=== PATIENT | female | born 1950 | race Caucasian/White ===

== ENCOUNTER 2019-05-24 09:01 | Emergency (ER) | payer MEDICARE ==
[2019-05-24 09:11] VITALS: BP 148/76
[2019-05-24] MEDS ORDERED: DEXAMETHASONE 10 MG/ML VIAL PO STA (09:36)
[2019-05-24] MEDS ORDERED: CHERRY SYRUP 10 ML UDC PO ONE (09:36)
--- NOTE | 2019-05-24 09:38 | ED Physician Documentation ---
PD HPI URI - Stated complaint Stated Complaint: SINUS PRESSURE/HEARING LOSS - Chief complaint Chief Complaint: Heent - History obtained from History obtained from: Patient - History of Present Illness Timing - onset: How many days ago (3) Timing duration: Days (3) Timing details: Gradual onset Pain level max: 3 Pain level now: 2 Associated symptoms: Ear pain (R), Nasal congestion, Rhinorrhea, Sore throat, Dry cough. No: Fever, Chills Improves by: Rest Worsened by: Activity Recently seen: Not recently seen Review of Systems Constitutional: denies: Fever, Chills Respiratory: denies: Wheezing GI: denies: Nausea, Vomiting, Diarrhea Skin: denies: Rash PD PAST MEDICAL HISTORY - Past Medical History Past Medical History: No - Present Medications Home Medications: Ambulatory Orders Medication Instructions Recorded Confirmed Cetirizine HCl/Pseudoephedrine 1 each PO BID PRN #30 tab.er.12h 05/24/19 [Zyrtec-D Tablet] Fluticasone [Flonase] 1 sprays JUAN MIGUEL BID PRN #1 bottle 05/24/19 - Allergies Allergies/Adverse Reactions: Allergies Allergy/AdvReac Type Severity Reaction Status Date / Time codeine Allergy Headache Verified 05/24/19 09:11 Penicillins Allergy Rash Verified 05/24/19 09:11 - Social History Does the pt smoke?: No Smoking Status: Never smoker PD ED PE NORMAL - Vitals Vital signs reviewed: Yes - General General: Alert and oriented X 3, No acute distress, Well developed/nourished - HEENT HEENT: PERRL, Moist mucous membranes, Other (Right tympanic membrane is retracted. No fluid. Cobblestoning of the posterior pharynx. No exudates. No tonsillar swelling. Uvula midline. Normal phonation. No trismus.) - Neck Neck: Supple, no meningeal sign, No adenopathy - Cardiac Cardiac: RRR, Strong equal pulses - Respiratory Respiratory: No respiratory distress, Clear bilaterally - Abdomen Abdomen: Soft, Non tender, Non distended - Derm Derm: Warm and dry - Extremities Extremities: No tenderness to palpate - Neuro Neuro: Alert and oriented X 3 - Psych Psych: Normal mood, Normal affect Results - Vitals Vitals: Vital Signs - 24 hr 05/24/19 09:09 Temperature 35.7 C L Heart Rate 75 Respiratory 16 Rate Blood Pressure 148/76 H O2 Saturation 99 Oxygen O2 Source Room air PD MEDICAL DECISION MAKING - ED course Complexity details: considered differential, d/w patient ED course: 69-year-old female presents to the emergency department with eustachian tube dysfunction, viral URI. Will place on decongestants and intranasal steroids. We will follow-up with her PCP for further care. She is well-appearing, nontoxic. Afebrile. Patient counseled regarding signs and symptoms for which I believe and urgent re-evaluation would be necessary. Patient with good understanding of and agreement to plan and is comfortable going home at this time This document was made in part using voice recognition software. While efforts are made to proofread this document, sound alike and grammatical errors may occur. Departure - Departure Disposition: 01 Home, Self Care Clinical Impression: Viral URI Eustachian tube dysfunction Qualifiers: Laterality: right Qualified Code(s): H69.81 - Other specified disorders of Eustachian tube, right ear Condition: Good Instructions: ED Viral Syndrome Follow-Up: Provider,Other [Primary Care Provider] - Within 1 week Prescriptions: Cetirizine HCl/Pseudoephedrine [Zyrtec-D Tablet] 1 each PO BID PRN #30 tab.er.12h PRN Reason: nasal congestion Fluticasone [Flonase] 1 sprays JUAN MIGUEL BID PRN #1 bottle PRN Reason: nasal congestion Comments: Use the medications as prescribed. Return if you worsen. Follow-up with your doctor for further care. Discharge Date/Time: 05/24/19 09:49
== END 2019-05-24 09:49 | disposition home or self-care (01) ==
LOC: ED 09:01
DX: J06.9 Acute upper respiratory infection, unspecified (principal); H69.81 Other specified disorders of Eustachian tube, right ear
CPT/HCPCS: 99282; 99284; A9270